=== PATIENT | male | born 2005 | race Caucasian/White ===

== ENCOUNTER 2025-10-13 15:56 | Emergency (ER) | payer SELFPAY ==
[2025-10-13 15:58] VITALS: BP 148/79; PULSE 70; RESP 16; TEMP 36.7; O2SAT 100
[2025-10-13] MEDS: KETOROLAC (*BKC) 60 MG/2 ML VIAL IM (16:58)
[2025-10-13 17:07] VITALS: BP 127/68; PULSE 77; RESP 14; O2SAT 99
--- NOTE | 2025-10-13 21:04 | ED.DENTAL ---
HPI - Dental/Oral General Chief complaint: Dental/Oral Stated complaint: toothache Time Seen by Provider: 10/13/25 16:01 History of Present Illness HPI Narrative: 20-year-old male presenting with left-sided dental pain for 1 week. Patient states he is having pain in the furthest tooth back on the left lower side of his mouth causing a constant left-sided headache that is not relieved by Tylenol. Patient states he has not been to the dentist in a couple months as he does not have insurance but that he was due to get this tooth removed. Patient denies fever/chills, dysphagia, gum pain, dizziness. MD Complaint: tooth pain Onset (ago): week(s) Duration: constant Severity: moderate Severity scale (1-10): 7 Relieving factors: nothing Exacerbating factors: chewing Context: poor dental care Treatment prior to arrival: oral analgesic Related Data Allergies Allergy/AdvReac Type Severity Reaction Status Date / Time No Known Allergies Allergy Verified 07/10/15 16:38 Review of Systems Review of Systems: All systems reviewed & are unremarkable except as noted in HPI and below Exam Narrative: GENERAL: Uncomfortable. No acute distress. HEAD: Normocephalic, atraumatic. EYES: PERRLA and EOMI. ENT: Nares clear, no rhinorrhea or epistaxis. Mucous membranes moist. Oropharynx without tonsillar hypertrophy exudate or other lesions. Bilateral TMs pearly soto non-bulging. Poor dentition was head below discoloration and calcified plaques. No dental caries. No signs of infection including fluctuance, erythema, or edema. NECK: Supple. No adenopathy or masses. No carotid bruits or JVD CHEST: Clear to auscultation. No respiratory distress. No wheezes rales or rhonchi HEART: Regular rate and rhythm. No murmur heard. Normal peripheral pulses. ABDOMEN: Soft, nontender, nondistended, normal active bowel sounds. EXTREMITIES: Normal range of motion. No edema. SKIN: Warm, dry, no rash. NEURO: No focal deficits. Alert and oriented x3. PSYCH: Normal mood and affect Course Vital Signs Vital signs: Vital Signs Temperature 98.1 F 10/13/25 15:58 Pulse Rate 70 10/13/25 15:58 Respiratory Rate 16 10/13/25 15:58 Blood Pressure 148/79 H 10/13/25 15:58 Pulse Oximetry 100 10/13/25 15:58 Oxygen Delivery Room Air 10/13/25 15:58 Temperature 98.1 F 10/13/25 15:58 Pulse Rate 77 10/13/25 17:07 Respiratory Rate 14 10/13/25 17:07 Blood Pressure 127/68 10/13/25 17:07 Pulse Oximetry 99 10/13/25 17:07 Oxygen Delivery Room Air 10/13/25 15:58 MDM MDM Narrative Medical decision making narrative: 20-year-old male presenting with left-sided dental pain for 1 week. Patient states he is having pain in the furthest tooth back on the left lower side of his mouth causing a constant left-sided headache that is not relieved by Tylenol. Patient states he has not been to the dentist in a couple months as he does not have insurance but that he was due to get this tooth removed. Patient denies fever/chills, dysphagia, gum pain, dizziness. Upon my initial assessment patient appears nontoxic but mildly uncomfortable. Physical exam did not demonstrate any signs of acute infection. Administered Toradol and plan to send with outpatient antibiotics. Patient states his insurance is due to renew at the beginning of the year. Advised calling and scheduling appointment on Wednesday. Patient agrees with discussion and after shared medical decision making agrees with plan of care. All questions were answered to the patient's satisfaction. The patient is appropriate for outpatient treatment and follow-up. Given reasons to return. Differential Diagnosis Differential Diagnosis: Differential diagnostic considerations for dental issues include gingival abscess, dental caries, toothache, dental abscess, fracture of tooth, aphthous ulcer, TMJ. Discharge Plan Discharge Clinical Impression: Toothache Patient Disposition: Home Condition: Stable Instructions: Antibiotic Form, Toothache (ED) Additional Instructions: Return to the Emergency Department if you experience fever >101, increasing swelling and redness of your tooth, or any other symptoms that are concerning to you Take antibiotic as prescribed. Tylenol or Ibuprofen as needed for pain. You can apply a dab of clove oil to a Qtip and apply to the tooth to help numb the area. Follow up with your dentist. Patient Language: Greenlandic Prescriptions: New amoxicillin-pot clavulanate [Augmentin] 500-125 mg tablet 1 tablet PO TID Qty: 15 0RF Follow-up/Referrals: UNKNOWN,DOCTOR [Primary Care Provider] Stand Alone Forms: Work/School Release IP
== END 2025-10-13 17:08 | disposition home or self-care (01) ==
DX: K08.89 Other specified disorders of teeth and supporting structures (principal)
CPT/HCPCS: 96372; 99283; J1885